=== PATIENT | female | born 1990 | race African-American/Black ===

== ENCOUNTER 2022-06-15 09:30 | Inpatient (IN) | payer OTHER ==
[2022-06-28 10:05] VITALS: BMI 30.1
[2022-06-29] MEDS ORDERED: ceFAZolin 2 GRAM PREMIX BAG IVPB ONE ×3 (14:08→15:08)
[2022-06-29] MEDS ORDERED: VASOPRESSIN 20 UNITS/ML VIAL IV ONE ×2 (14:33→14:34)
[2022-06-29] MEDS ORDERED: DEXMEDETOMIDINE HCL 200 MCG/2 ML IVPB ONE (14:35)
[2022-06-29] MEDS ORDERED: KETAMINE HCL 500 MG/10 ML VIAL ONE (15:14)
[2022-06-29] MEDS ORDERED: FENTANYL CITRATE/PF 50 MCG/ML VIAL ONE ×6 (15:14→18:22)
[2022-06-29] MEDS ORDERED: ROCURONIUM BROMIDE 50 MG/5 ML SYRINGE ONE (15:38)
[2022-06-29] MEDS ORDERED: PROMETHAZINE HCL 25 MG/1 ML VIAL IVPUSH PRN (16:31)
[2022-06-29] MEDS ORDERED: ONDANSETRON 4 MG/2 ML VIAL IVPUSH PRN ×3 (16:31→17:44)
[2022-06-29] MEDS ORDERED: DEXAMETHASONE SOD PHOSPHATE 4 MG/1 ML VIAL IVPUSH PRN (16:32)
[2022-06-29] MEDS ORDERED: PROMETHAZINE HCL 25 MG/1 ML VIAL IVPB PRN (16:32)
[2022-06-29] MEDS ORDERED: PROPOFOL 20 ML ONE (17:07)
[2022-06-29] MEDS ORDERED: NEOSTIGMINE METHYLSULFATE 0.5 MG/1 ML - 10 ML MDV ONE (17:12)
[2022-06-29] MEDS ORDERED: GLYCOPYRROLATE 0.2 MG/1 ML VIAL ONE (17:12)
[2022-06-29] MEDS ORDERED: ACETAMINOPHEN 325 MG TABLET (FP) PO PRN (17:44)
[2022-06-29] MEDS ORDERED: DOCUSATE SODIUM 100 MG CAPSULE (FP) PO PRN (17:44)
[2022-06-29] MEDS ORDERED: SIMETHICONE 80 MG TAB.CHEW (FP) PO PRN (17:44)
[2022-06-29] MEDS: HYDROmorphone *PCA* 10MG/50ML DISP.SYRIN PCA SCH (18:10)
[2022-06-29] MEDS ORDERED: HYDROmorphone *PCA* 10MG/50ML DISP.SYRIN ONE (18:22)
[2022-06-30] MEDS: HYDROmorphone *PCA* 10MG/50ML DISP.SYRIN PCA SCH (00:27)
[2022-06-30] MEDS ORDERED: diphenhydrAMINE HCL 12.5 MG/5 ML UNIT-DOSE CUPS PO ONE (05:22)
[2022-06-30] MEDS: LACTATED RINGERS SOLUTION 1,000 ML IV SCH ×2 (08:00→17:28)
[2022-06-30 10:23] LABS: HEMATOCRIT 33.2 % (32.4-45.2); HEMOGLOBIN 10.1 GM/dL (10.7-15.3); MCH 22.9 pg (25.7-33.7); MCHC 30.4 g/dl (32.0-36.0); MEAN CELL VOLUME 75.3 fl (80-96); MEAN PLT VOLUME 8.4 fl (7.5-11.1); PLATELET COUNT 246 10^3/uL (134-434); RDW 14.8 % (11.6-15.6); WHITE BLOOD COUNT 9.9 K/mm3 (4.0-10.0)
[2022-06-30 10:42] LABS: BLOOD UREA NITROGEN 9.1 mg/dL (7-18)
[2022-06-30 10:45] LABS: CREATININE 0.7 mg/dL (0.55-1.3)
[2022-06-30] MEDS: oxyCODONE HCL 5 MG TABLET PO PRN ×2 (12:09→21:19)
[2022-06-30] MEDS: IBUPROFEN 600 MG TABLET (FP) PO PRN (14:42)
[2022-06-30] MEDS ORDERED: IBUPROFEN 600 MG TABLET (FP) PO PRN (17:44)
[2022-07-01 03:08] VITALS: RESP 20
[2022-07-01] MEDS: oxyCODONE HCL 5 MG TABLET PO PRN (04:57)
[2022-07-01] MEDS: IBUPROFEN 600 MG TABLET (FP) PO PRN (09:18)
[2022-07-01 15:09] VITALS: BP 120/67; PULSE 82; TEMP 98.2
== END 2022-07-01 14:39 | disposition home or self-care (01) | DRG 743 ==
LOC: J2C 06-29 04:41 → UNDOADMIN 06-29 04:41 → J8W 06-29 06:00 → EDSTATUS 06-29 09:30 → JASUSAT 06-29 18:38 → J2C 06-29 18:40 → J8W 06-29 20:23 → J2C 06-29 20:23
PROVIDERS: ADMIT Obstetrics & Gynecology Maternal & Fetal Medicine; ATTEND Obstetrics & Gynecology Maternal & Fetal Medicine
PROC: 0UB90ZZ Excision of Uterus, Open Approach (ICD-10-PCS; principal; 2022-06-29 14:00)
DX: D25.0 Submucous leiomyoma of uterus (principal); E28.2 Polycystic ovarian syndrome
CPT/HCPCS: 36415; 80048; 85027; 86850; 86900; 86901; 88305-TC; 94760

== ENCOUNTER 2023-03-20 19:50 | Emergency (ER) | payer OTHER ==
[2023-03-20 20:03] VITALS: BP 113/74; PULSE 77; RESP 16; TEMP 99.2; BMI 32.8
[2023-03-20 20:28] LABS: EPI CELLS 31 /uL (0-25.1); HYALINE CASTS 4 /uL (0-3.1); PH,URINE 5.5 (5.0-8.0); URINE APPEARANCE CLEAR; URINE BACTERIA 5281 /uL (0-1359); URINE BILIRUBIN NEGATIVE (NEGATIVE); URINE COLOR YELLOW; URINE GLUCOSE (UA) NEGATIVE (NEGATIVE); URINE KETONE TRACE (NEGATIVE); URINE LEUK ESTERASE TRACE (NEGATIVE); URINE NITRITE NEGATIVE (NEGATIVE); URINE PROTEIN TRACE (NEGATIVE); URINE RBC 19 /uL (0-23.9); URINE WBC 171 /uL (0-25.8)
[2023-03-20] MEDS ORDERED: CEPHALEXIN MONOHYDRATE 500 MG CAPSULE (UD) PO ONE (23:35)
[2023-03-20] MEDS ORDERED: CEPHALEXIN MONOHYDRATE 500 MG CAPSULE (UD) ONE (23:36)
== END 2023-03-20 23:39 | disposition home or self-care (01) ==
LOC: JER 19:50
DX: O23.41 Unspecified infection of urinary tract in pregnancy, first trimester (principal); R30.0 Dysuria; Z3A.01 Less than 8 weeks gestation of pregnancy; R35.0 Frequency of micturition; R39.15 Urgency of urination
CPT/HCPCS: 81003; 84703; 87086; 99283-25